=== PATIENT | male | born 1990 | race Caucasian/White ===

== ENCOUNTER 2017-01-05 16:18 | Emergency (ER) | payer SELFPAY ==
[2017-01-05 17:17] VITALS: BP 126/59
--- NOTE | 2017-01-05 17:41 | UC ---
Skin Complaint HPI - HPI Summary HPI Summary: Noticed multiple round red lesions on extremities, abdomen, face starting Wednesday. Not itchy or painful, denies fever or drainage. Areas are getting bigger. - History of Current Complaint Chief Complaint: UCRash Time Seen by Provider: 01/05/17 17:23 Stated Complaint: RASH Hx Obtained From: Patient Onset/Duration: Gradual Onset, Lasting Days Timing: Constant Onset Severity: Mild Current Severity: Mild Location: Diffuse Character: Redness Aggravating: Nothing Alleviating: Nothing Associated Signs & Symptoms: Positive: Rash - Allergy/Home Medications Allergies/Adverse Reactions: Allergies Allergy/AdvReac Type Severity Reaction Status Date / Time No Known Allergies Allergy Verified 01/05/17 17:05 Review of Systems Constitutional: Negative Skin: Rash Eyes: Negative ENT: Negative Respiratory: Negative Cardiovascular: Negative Gastrointestinal: Negative Genitourinary: Negative Motor: Negative Neurovascular: Negative Musculoskeletal: Negative Neurological: Negative Psychological: Negative All Other Systems Reviewed And Are Negative: Yes PMH/Surg Hx/FS Hx/Imm Hx Endocrine History Of: Reports: Thyroid Disease - Stopped meds 1 year ago Denies: Diabetes Cardiovascular History Of: Reports: Hypertension - Stopped meds 1 year ago Denies: Cardiac Disorders Respiratory History Of: Reports: Asthma Denies: COPD GI/ History Of: Denies: Ulcer - Surgical History Surgical History: Yes Surgery Procedure, Year, and Place: Ear tubes as a baby - Family History Known Family History: Positive: Hypertension - Social History Alcohol Use: Occasionally Substance Use Type: None Smoking Status (MU): Never Smoked Tobacco Type: Smokeless Tobacco Amount Used/How Often: 1 can per week - Immunization History Most Recent Influenza Vaccination: never Most Recent Tetanus Shot: states up to date. Physical Exam Triage Information Reviewed: Yes Appearance: Well-Appearing, No Pain Distress, Obese Vital Signs: Initial Vital Signs Temp 98.5 F 01/05/17 17:06 Pulse 92 01/05/17 17:06 Resp 16 01/05/17 17:06 BP 126/59 01/05/17 17:06 Pulse Ox 96 01/05/17 17:06 Vital Signs Reviewed: Yes Eye Exam: Normal Eyes: Positive: Conjunctiva Clear ENT Exam: Normal ENT: Positive: Normal ENT inspection, Hearing grossly normal, Pharynx normal, TMs normal Neck exam: Normal Neck: Positive: Supple, Nontender, No Lymphadenopathy Respiratory Exam: Normal Respiratory: Positive: Chest non-tender, Lungs clear, Normal breath sounds, No respiratory distress, No accessory muscle use Cardiovascular Exam: Normal Cardiovascular: Positive: RRR, No Murmur Musculoskeletal Exam: Normal Neurological Exam: Normal Psychological Exam: Normal Skin Exam: Other - Multiple red/pink/brown flat lesions on extremities, trunk, and abdomen, all round or oval, some with central clearing. Well-demarcated, no scale. Course/Dx - Diagnoses Provider Diagnoses: Multiple erythema migrans. lyme infection Discharge - Discharge Plan Condition: Stable Disposition: HOME Prescriptions: DOXYcycline CAP(*) [DOXYcycline 100MG CAP(*)] 100 mg PO BID #42 cap Patient Education Materials: Lyme Disease (ED) Additional Instructions: Though you have multiple Lyme Disease rashes on your body, this is still an early stage of the illness and can be easily cured with antibiotics. Though 2 weeks is probably adequate in most situations, I have prescribed 3 weeks as some people think this is more complete. You can stop the medication early ( after 2 weeks) with your primary care provider's permission. Make sure you cover your skin well and use plenty of sunscreen while you are taking this medication as it will make you very prone to sunburn.
== END 2017-01-05 17:45 | disposition home or self-care (01) ==
LOC: UCEAST 16:18
DX: A26.0 Cutaneous erysipeloid (principal); A69.20 Lyme disease, unspecified; J45.909 Unspecified asthma, uncomplicated; F17.220 Nicotine dependence, chewing tobacco, uncomplicated
CPT/HCPCS: 99202; G0463

== ENCOUNTER 2019-09-13 10:34 | Emergency (ER) | payer MEDICAID, OTHER ==
--- NOTE | 2019-09-13 10:38 | UC ---
Throat Pain/Nasal Bryson HPI - HPI Summary HPI Summary: Patient is a 29yo male presenting with mother for sore throat, PND, and b/l ear pressure that began this morning. Patient is deaf, so mother signs for him. Denies nasal congestion. Denies cough. Denies fever and chills. Normal appetite and fluid intake. He is concerned for strep throat after being around younger relatives. - History of Current Complaint Stated Complaint: SORE THROAT Hx Obtained From: Patient, Family/Pediatric Speech Therapist - mother Onset/Duration: Sudden Onset, Lasting Hours - Allergies/Home Medications Allergies/Adverse Reactions: Allergies Allergy/AdvReac Type Severity Reaction Status Date / Time No Known Allergies Allergy Verified 09/13/19 10:47 Home Medications: Home Medications NK [No Home Medications Reported] 09/13/19 [History Confirmed 09/13/19] PMH/Surg Hx/FS Hx/Imm Hx Endocrine History: Thyroid Disease Cardiovascular History: Hypertension - Surgical History Surgical History: Yes Surgery Procedure, Year, and Place: Ear tubes as a baby - Family History Known Family History: Positive: Hypertension - Social History Alcohol Use: Occasionally Substance Use Type: None Smoking Status (MU): Never Smoked Tobacco Type: Smokeless Tobacco Amount Used/How Often: 1 can per week - Immunization History Most Recent Influenza Vaccination: never Most Recent Tetanus Shot: states up to date. Review of Systems All Other Systems Reviewed And Are Negative: Yes Constitutional: Positive: Negative. Negative: Fever, Chills ENT: Positive: Sore Throat, Ear Ache - b/l pressure. Negative: Nasal Discharge , Sinus Congestion Respiratory: Positive: Negative. Negative: Cough Cardiovascular: Positive: Negative Gastrointestinal: Positive: Negative Musculoskeletal: Positive: Negative Neurological: Positive: Negative Physical Exam Triage Information Reviewed: Yes Appearance: Well-Appearing, No Pain Distress, Well-Nourished Vital Signs: Vital Signs (72 hours) 09/13/19 10:44 Temperature 97.7 F Pulse Rate 74 Respiratory 20 Rate Blood Pressure 154/106 (mmHg) O2 Sat by Pulse 98 Oximetry Lab Results 09/13/19 Range/Units 10:51 Group A Strep Rapid Negative (Negative) Vital Signs Reviewed: Yes Eyes: Positive: Conjunctiva Clear ENT: Positive: Pharyngeal erythema, Nasal drainage - PND, TMs normal - TMs intact with normal light reflexes and landmarks b/l, Tonsillar swelling, Uvula midline. Negative: Hearing grossly normal - pt is deaf, Nasal congestion, Tonsillar exudate Neck exam: Normal Neck: Positive: Supple, Nontender, No Lymphadenopathy Respiratory Exam: Normal Respiratory: Positive: Lungs clear, Normal breath sounds, No respiratory distress Cardiovascular Exam: Normal Cardiovascular: Positive: RRR Neurological: Positive: Alert Psychological: Positive: Age Appropriate Behavior Skin Exam: Normal Throat Pain/Nasal Course/Dx - Course Course Of Treatment: Rapid strep test negative. Discussed likely viral source of pharyngitis and symptomatic treatment. Instructed to follow up with pcp if symptoms persist. Discussed elevated BP with patient and mother. They state they know about htn dx from pcp but patient prefers not to take any medications. I strongly encouraged patient to follow up with pcp within next 1-2 weeks for further evaluation and management of htn. Patient and mother voiced understanding and agreed with treatment plan. - Differential Dx/Diagnosis Provider Diagnosis: Pharyngitis, Post-nasal drip, Hypertension Discharge ED - Sign-Out/Discharge Documenting (check all that apply): Patient Departure All imaging exams completed and their final reports reviewed: No Studies - Discharge Plan Condition: Stable Disposition: HOME Patient Education Materials: Pharyngitis (ED), Hypertension (ED), Postnasal Drip (DC) Referrals: [facility] [place] PHYSICIAN REFERRAL [Outside] - 2 Weeks Additional Instructions: As discussed, your rapid strep test was negative today. Your symptoms are likely caused by a virus and should resolve without treatment. Tea with honey, throat lozenges, salt water gargles, and throat spray may help relieve sore throat. Nasal saline spray or Flonase may help relieve symptoms as well. You may take tylenol and/or ibuprofen as directed for pain relief. Get plenty of rest and increase fluid intake. Follow up with your primary care provider or one of the referrals listed below if your symptoms persist. Your blood pressure was elevated today at 154/106. It is strongly recommended that you follow up with your primary care provider or the referral listed below within the next 1-2 weeks for further management of hypertension. - Billing Disposition and Condition Condition: STABLE Disposition: Home
[2019-09-13 10:46] VITALS: BP 154/106
== END 2019-09-13 11:15 | disposition home or self-care (01) ==
LOC: UCEAST 10:34
DX: J02.9 Acute pharyngitis, unspecified (principal); R09.82 Postnasal drip; I10 Essential (primary) hypertension
CPT/HCPCS: 87651; 99211; G0463